=== PATIENT | male | born 1970 | race Caucasian/White ===

== ENCOUNTER 2016-12-08 16:22 | Emergency (ER) | payer MEDICAID ==
[~2016-12-08] VITALS: Ht 177.8 cm; Wt 75.0 kg
[~2016-12-08 16:22] MED LIST: COZA50TA PO; PHYT5TAB2 PO
[2016-12-08 16:23] VITALS: BP 125/73; PULSE 101; RESP 14; TEMP 97.1; O2SAT 98
[2016-12-08] MEDS ORDERED: [UNRECOGNIZED DRUG - REMARK] (16:38)
[2016-12-08] MEDS ORDERED: OXYC1TAB13 PO (16:38)
[2016-12-08] MEDS ORDERED: CYCL5TAB PO (17:21)
[2016-12-08] MEDS ORDERED: MOTR200T4 PO (17:21)
--- NOTE | 2016-12-08 17:22 | PD ---
HPI Chief Complaint: Back/ Neck Pain or Injury Time Seen by Provider: 16:30 Travel History International Travel<30 days: No Contact w/Intl Traveler<30days: No Traveled to known affect area: No History of Present Illness HPI 46-year-old male with a history of chronic neck pain and cervical radiculopathy presents to the emergency room for chief complaint of neck pain. He reports that he was unable to see his neurologist/pain management doctor due to insurance reasons and therefore was unable to receive pain medicine. He reports that [facility] was prescribing oxycodone 7.5 mg every 4 hours. He reports he's been out of pain medication for several days. He denies injury or trauma to the neck. He has chronic weakness of the right fourth and fifth digit. He denies any progressive or worsening weakness in that right extremity. He denies headache ,fevers, chills, nausea vomiting. PFS Past Medical History Narrative Medical Patient reports significant past medical history of chronic neck pain with cervical radiculopathy and weakness of the right fourth and fifth digit. Hypertension. Cirrhosis: Yes COPD: Yes Diabetes: No Diminished Hearing: No Endocrine: No GERD: No Glaucoma: No Gout: Yes Genitourinary: No Headaches: Yes Hepatitis: Yes Hiatal Hernia: No Hypertension: Yes Immune Disorder: No Kidney Stones: No Musculoskeletal: Yes (GOUT) Neurologic: Yes Psychiatric: No Reproductive: No Respiratory: No Immunizations Current: Yes Migraines: Yes Myocardial Infarction: No Pancreatitis: Yes Radiation Therapy: No Renal Failure: No Seizures: No Sleep Apnea: No Thyroid Disease: No Ulcer: No Tetanus Vaccination: < 5 Years Influenza Vaccination: No Past Surgical History Abdominal Surgery: No AICD: No Appendectomy: No Arteriovenous Shunt: No Body Medical Devices: insomnia Cardiac Surgery: No Cholecystectomy: Yes Ear Surgery: No Endocrine Surgery: No Eye Surgery: No Genitourinary Surgery: No Insulin Pump: No Joint Replacement: Yes (right ankle 3screws, 1 pin.) Neurologic Surgery: No Oral Surgery: No Pacemaker: No Thoracic Surgery: No Other Surgery: Yes (cholecystectomy) Social History Alcohol Use: Yes (occ) Tobacco Use: Yes (1 ppd) Substance Use: No Allergies-Medications (Allergen,Severity, Reaction): Coded Allergies: Codeine (Verified Allergy, Severe, HIVES, 12/08/16) Reported Meds & Prescriptions Reported Meds & Active Scripts Active Motrin Ib (Ibuprofen) 200 Mg Tab 800 Mg PO Q8HR PRN Mephyton (Phytonadione) 5 Mg Tab 5 Mg PO DAILY Cozaar (Losartan Potassium) 50 Mg Tab 1 Tab PO DAILY Reported [2 unk inhal] Roxicodone (Oxycodone HCl) 5 Mg Tab 7.5 Mg PO Q8H PRN Review of Systems Except as stated in HPI: all other systems reviewed are Neg Physical Exam Narrative GENERAL: Alert, well-nourished, well-appearing male. Appears mildly uncomfortable. Ambulatory without difficulty SKIN: Focused skin assessment warm/dry. No rash HEAD: Atraumatic. Normocephalic. EYES: Pupils equal and round. No scleral icterus. No injection or drainage. ENT: No nasal bleeding or discharge. Mucous membranes pink and moist. NECK: Trachea midline. No JVD. Generalized posterior neck pain. Right trapezius muscle spasm. No point tenderness. No midline tenderness CARDIOVASCULAR: Regular rate and rhythm. No murmur appreciated. RESPIRATORY: No accessory muscle use. Clear to auscultation. Breath sounds equal bilaterally. GASTROINTESTINAL: Abdomen soft, non-tender, nondistended. Hepatic and splenic margins not palpable. MUSCULOSKELETAL: No obvious deformities. No clubbing. No cyanosis. No edema. NEUROLOGICAL: Awake and alert. No obvious cranial nerve deficits. Motor grossly within normal limits. Normal speech. Mild motor weakness of the fourth and fifth digit on the right hand. PSYCHIATRIC: Appropriate mood and affect; insight and judgment normal. Data Data Last Documented VS Vital Signs Date Time Temp Pulse Resp B/P Pulse Ox O2 Delivery O2 Flow Rate FiO2 12/08/16 16:23 97.1 101 14 125/73 98 MDM Medical Decision Making Medical Screen Exam Complete: Yes Emergency Medical Condition: Yes Medical Record Reviewed: Yes Differential Diagnosis Neck pain, cervical radiculopathy, herniated disc Narrative Course 46-year-old male with a history of chronic neck pain presents to the emergency room for acute on chronic pain management of his neck. He reports for insurance purposes he was unable to see his neurologist/pain management doctor who prescribed him oxycodone 7.5. Patient appears mildly uncomfortable. Discussed treatment options with patient. Patient will be given a shot of Toradol in the emergency department and discharged home with NSAIDs. He was instructed to follow up with his primary care provider. He is in agreement to this plan. Diagnosis Primary Impression: Neck pain Referrals: [facility] Neurologist Patient Instructions: Chronic Neck Pain (DC), General Instructions Scripts Ibuprofen (Motrin Ib)200 Mg [id number] Mg PO Q8HR PRN (PAIN SCALE 1 TO 5) #20 TAB Prov:Sheri Crawley 12/08/16 Disposition: 01 DISCHARGE HOME Condition: Stable Sheri Crawley December 08, 2016 17:22 Sheri Crawley December 08, 2016 17:22
[2016-12-08] MEDS ORDERED: KETOROLAC TROMETHAMINE 60 MG/2 ML (IM) VIAL IM ONE (17:30)
== END 2016-12-08 17:42 | disposition home or self-care (01) ==
LOC: NEPK 16:22
DX: M54.2 Cervicalgia (principal); M54.12 Radiculopathy, cervical region; M62.838 Other muscle spasm; F17.210 Nicotine dependence, cigarettes, uncomplicated; I10 Essential (primary) hypertension
CPT/HCPCS: 96372; 99284; J1885